=== PATIENT | female | born 1980 | race Caucasian/White ===

== ENCOUNTER → 2016-06-19 | Outpatient (CLI) | payer OTHER ==
--- NOTE | 2016-06-19 15:55 | US ---
June 19, 2016 Dear Providers at the Center [facility], Thank you for requesting consultation and a detailed obstetrical ultrasound for Mrs. Andreina zimmermanar y to advanced maternal age. As you know, Quynh is a 35 year old G 3, P 2002 . Her due date is by LMP of 02/03/17. Her current gestational age based on this dating is 19 weeks 3 days. Her g enetic screening revealed reassuring results by NIPT. Her obstetrical history reveals two uncomplica alaina term vaginal deliveries. ULTRASOUND Number of fetuses: 1 Placental location: Posterior; no evidence of previa Placental cord insertion: Eccentric presentation: Variable Cervix: 4.0 cm viewed transabdominally Maximum Vertical Pocket: 4.6 cm The adnexa were evaluated. No pathology was seen. Right ovary is visualized and appears normal. It measures 2.6 x 1.9 x 2.2 cm. Left ovary is visualized and appears normal. It measures 1.4 x 0.8 x 1.9 cm. MEASUREMENTS: Biparietal diameter: 42 mm 18 weeks, 6 days Head circumference: 155 mm 18 weeks, 4 days Abdominal circumference: 141 mm 19 weeks, 4 days Femur length: 28 mm 18 weeks, 5 days Humerus length: 28 mm 19 weeks, 1 days Transcerebellar diameter: 20 mm 19 weeks, 1 days Average ultrasound age: 19 weeks, 0 days Estimated weight: 269 gm weight percentile: 23% ANATOMY Supratentorial brain: Normal including views of the falx, cavum septum pellucidum and choroids Lateral Ventricle: Normal, measuring 5.0 mm Posterior fossa: Normal including the cerebellum and cisterna magna Spine: Normal Nuchal fold: 3.0 mm normal Face: Normal views of the lip and nose area Profile: Normal Palate: Normal appearance of the alveolar ridge Cardiac Exam: Four chamber view of the heart: Normal including intraventricular septum Left Ventricular Outflow Tract: Normal Right Ventricular Outflow Tract: Normal 3 Vessel View: Normal Tracheal View: Suboptimal Aortic Arch: Normal Ductal Arch: Normal SVC/IVC: Normal Heart Rate: 147 bpm Diaphragm: No overt abnormalities have been detected Stomach: Normal Umbilical cord insertion: Normal Right kidney: Normal Left kidney: Normal Bladder: Normal Number of cord vessels: Three Upper extremities: Normal including the number, and architecture Lower extremities: Normal including the number and architecture Gender: Male IMPRESSION: 1. Intrauterine at 19 w 3 d, RUTHY of 11/10/16. This is consistent with her previously esta blished dates. 2. Today's sonogram reveals a normal appearing fetus. 3. Cervical length measures 4.0 cm, and is without evidence of insufficiency. 4. Advanced maternal age RECOMMENDATIONS: I was pleased to review today's ultrasound with your patient. I have reassured her that the gr owth and amniotic fluid volume are appropriate for this gestational age. The detailed anatomic surve y did not reveal any overt abnormalities. Quynh is aware that ultrasound is a screening too l and cannot provide definitive genetic diagnosis. Should she desire definitive genetic diagnosis, s he would need to have a genetic amniocentesis performed. After our discussion regarding the procedur e, benefits, risks, alternatives, and limitations to the information received Quynh DECLINES amnioc entesis. Future ultrasound and consultation is left to your clinical discretion. Thank you for allowing me the opportunity to consult and evaluate your patient. Should you have any questions or concerns please do not hesitate to contact me. This visit was approximately 15 minutes in length with 10 minutes spent in direct face to face consultation reviewing aneuploidy screening ve rsus definitive genetic diagnosis. Sincerely, Lexi Vale MD [employer] [facility] [facility] Department of Obstetrics & Gynecology [facility]
--- NOTE | 2016-06-19 19:29 | US ---
Complete Detailed Obstetrical Sonography Clinical History: 35-year-old female with advanced maternal age, presenting for anatomic surve y and biometry. Technique: A curvilinear 5-megahertz transducer was used to sonographically evaluate the fetus and t he placenta. M-mode Doppler was used. Cine clips are stored on PACS. Dr. Lexi Vale is present. Comparison Study: None currently available. LMP: February 04, 2016, indicating an age of 19 weeks, 3 days, and an estimated date of delivery of November 10, 2016. Findings: There is a single viable intrauterine gestation, with the fetus variable in presentation. There is a three-vessel cord, with eccentric placental cord insertion. The placenta is posteriorly- situated, with no evidence of a previa. The maternal cervical length is evaluated transabdominally, and measures 4.0 cm. The amniotic fluid volume is appropriate, with a maximal vertical pocket of 4.6 cm. The heart rate is 147 bpm. The maternal ovaries are identified, and appear normal, measu ring 2.6 x 1.9 x 2.2 cm on the right, and 1.4 x 0.8 x 1.9 cm on the left. The anatomic survey reveals a normal appearance to the supra- and infratentorial structures. T he lateral ventricular diameter is 5.0 mm, the cisterna magna is 5.3 mm, and the nuchal fold is 3.0 m m. The spine is evaluated in sagittal and transverse planes, and appears normal. The sagittal facia l profile, the nasolabial anatomy, and the alveolar ridge are normal. There is a four-chambere d heart, with interventricular septum, right and left ventricular outflow tracts, ductal and aortic a rch, inflow tracts, and three-vessel view, with suboptimal tracheal view. The diaphragm is intact. The stomach, right and left kidneys, urinary bladder, and upper and lower extremities are identified. The gender is believed to be male. Biometry is as follows: The biparietal diameter is 42 mm, corresponding to an age of 18 weeks, 6 days, +/- 1 week, 6 days, wh ich is at the 22nd percentile. The head circumference is 155 mm corresponding to an age of 18 weeks, 4 days, +/- 1 week, 4 days, whi ch is at the 8th percentile. The abdominal circumference is 141 mm corresponding to an age of 19 weeks, 4 days, +/- 2 weeks, 1 day , which is at the 46th percentile. The femur length is 28 mm, corresponding to an age of 18 weeks, 5 days, +/- 1 week, 6 days, which is at the 17th percentile. The humerus length is 28 mm, corresponding to an age of 19 weeks, 1 day. The transcerebellar diameter is 20 mm, corresponding to an age of 19 weeks, 1 day, +/- 1 week, 0 days . The composite gestational age is 19 weeks, 0 days, which is concordant with menstrual dating. The estimated weight is 269 gm, +/- 39 gm, which is 9 ounces, +/- 1 ounce, which is at the 23rd percentile. The head circumference to abdominal circumference ratio is normal, measuring 1.11. The femur length to biparietal diameter ratio is 60%, and the femur length to abdominal circumference ratio is 20%. Impression: There is a single viable intrauterine gestation, with concordant biometry, and no overt structural anomaly. Please also refer to Dr. Vale's separate assessments and specific recommendations for follow up.
== END ==
LOC: FIMAGING 14:16
PROVIDERS: ATTEND Advanced Practice Midwife
DX: O09.522 Supervision of elderly multigravida, second trimester (principal); Z3A.19 19 weeks gestation of pregnancy

== ENCOUNTER → 2016-11-16 | Outpatient (CLI) | payer OTHER | LOC: FIMAGING 10:05 | PROVIDERS: ATTEND Advanced Practice Midwife | DX: O09.523 Supervision of elderly multigravida, third trimester (principal); O48.0 Post-term pregnancy; Z3A.41 41 weeks gestation of pregnancy ==